=== PATIENT | male | born 1995 | race Two or more races ===

== ENCOUNTER 2019-03-31 17:43 | Emergency (ER) | payer OTHER ==
--- NOTE | 2019-03-31 17:46 | PDOC ---
History of Present Illness - General Chief Complaint: Weakness Stated Complaint: WEAKNESS Time Seen by Provider: 03/31/19 17:45 - History of Present Illness Initial Comments: HPI: 23yo M with HLD and elevated liver enzymes presenting "for a checkup." Patients states for the past six months he has been using about $50 marijuana/week and smoked 1 gram last night. In addition, he used 1/4 tablet of xanax. Thereafter he went home and his mother was concerned that he looked "pale" so forced him to go to the ER for evaluation. Did not use any other recreational substances. Patient states he feels "fine" and denies any acute symptoms. Did not disclose to his mother regarding this substance use. No falls, syncope, chest pain, or trouble breathing. Does not have SI/HI/AH/VH. Does not want to go to detox. No fevers or chills. ROS: Constitutional: no fever, no chills HEENT: no throat pain, no dysphagia Cardiovascular: no chest pain, no palpitations Respiratory: no cough, no shortness of breath Gastrointestinal: no abdominal pain, no nausea Genitourinary: no dysuria, no hematuria Musculoskeletal: no myalgia, no arthralgia Skin: no rash, no itching Neurologic: no headache, no weakness PE: General: Awake, alert, and fully oriented, in no acute distress Head: No signs of trauma Eyes: EOMI, sclera anicteric ENT: Moist mucus membranes Neck: Normal ROM, supple Lungs: Lungs clear, Normal breath sounds Cardio: Regular rhythm, S1 and S2 present Abdomen: Soft, nontender. No guarding, no rebound, no masses Extremities: Normal range of motion, Distal pulses present SKIN: Warm, Dry, normal turgor Neurologic: Cranial nerves II through XII intact. Normal speech, sensation, strength, coordination, and gait. ED Course/MDM: DDX including but not limited to substance use disorder, malingering, psych Physical exam benign 03/31/19 17:46 Patient without acute complaints States he does not want to go to detox Counseled patient regarding the danger of using medications that are not prescribed to him, especially in conjunction with other substances Return precautions To be discharged 03/31/19 18:07 04/01/19 08:17 Past History - Past Medical History Allergies/Adverse Reactions: Allergies Allergy/AdvReac Type Severity Reaction Status Date / Time morphine Allergy Verified 03/31/19 17:43 Home Medications: Ambulatory Orders NK [No Known Home Medication] 03/31/19 - Surgical History Abdominal Surgery: Yes - Psycho Social/Smoking Cessation Hx Smoking History: Never smoked Discharge - Discharge Information Problems reviewed: Yes Clinical Impression/Diagnosis: Substance use disorder Condition: Stable Disposition: HOME - Follow up/Referral - Patient Discharge Instructions Patient Printed Discharge Instructions: Substance Use Disorder Additional Instructions: You came into the emergency department after feeling weak. Your physical exam was normal. Eat and hydrate throughout the day to prevent dehydration and low blood sugar levels. Follow up with your primary care physician within 72 hours. Call and make an appointment to further evaluate your symptoms. Your workup is not complete until you do so. Immediate medical attention is required if you have: any chest pain, palpitations, shortness of breath, severe headaches, changes in vision, episodes of fainting, focal numbness or weakness, any severe abdominal pain, any black tarry stool, or any new or concerning symptoms. If you think you are having an emergency, call for emergency medical services or present to the emergency department right away. - Post Discharge Activity
[2019-03-31 17:51] VITALS: BP 111/69; PULSE 83; TEMP 98.7; BMI 29.0
--- NOTE | 2019-03-31 18:13 | PDOC ---
Attending Attestation - Resident Resident Name: Mable Sue - ED Attending Attestation I have performed the following: I have examined & evaluated the patient, The case was reviewed & discussed with the resident, I agree w/resident's findings & plan, Exceptions are as noted - HPI HPI: 03/31/19 18:11 23 M here with no complaints. He states that he used marijuana and took xanax last night and was intoxicated when he came home last night. His mother was worried and forced him to come to ED for evaluation today. Pt states he feels well. Denies SI/HI/AVH. Is not interested in detox/rehab. Pt would like to go home and does not wish to have any testing done. - Physicial Exam PE: 03/31/19 18:12 "GENERAL: Awake, alert, and fully oriented, in no acute distress. HEAD: No signs of trauma EYES: PERRLA, EOMI, sclera anicteric, conjunctiva clear ENT: Auricles normal inspection, hearing grossly normal, nares patent, oropharynx clear without exudates. Moist mucosa NECK: Nontender, no stepoffs, Normal ROM, supple, no lymphadenopathy, JVD, or masses LUNGS: Breath sounds equal, clear to auscultation bilaterally. No wheezes, and no crackles HEART: Regular rate and rhythm, normal S1 and S2, no murmurs, rubs or gallops ABDOMEN: Soft, nontender, normoactive bowel sounds. No guarding, no rebound. No masses EXTREMITIES: Normal range of motion, no edema. No clubbing or cyanosis. No cords, erythema, or tenderness NEUROLOGICAL: Cranial nerves II through XII intact. 5/5 strength and sensation in all extremities, Normal speech, normal gait, normal cerebellar function SKIN: Warm, Dry, normal turgor, no rashes or lesions noted. - Medical Decision Making 03/31/19 18:12 23 M here with no complaints, presenting to ED because his mother wanted him evaluated after he used marijuana and xanax last night. Pt well appearing, vitals stable, completely benign exam. Clinically stable for DC at this time. I answered all of the patient's questions. The patient was satisfied with the care received and felt comfortable with the discharge plan and treatment plan. The patient agrees to follow up with the primary care physician within 24-72 hours.
== END 2019-03-31 18:31 | disposition home or self-care (01) ==
LOC: FER 17:43
DX: F19.10 Other psychoactive substance abuse, uncomplicated (principal); Z88.6 Allergy status to analgesic agent; E78.5 Hyperlipidemia, unspecified; K75.89 Other specified inflammatory liver diseases
CPT/HCPCS: 99281-25